=== PATIENT | female | born 1990 | race African-American/Black ===

== ENCOUNTER 2021-09-15 20:02 | Inpatient (IN) | payer MEDICAID, OTHER ==
[~2021-09-15] VITALS: Ht 175.3 cm; Wt 61.4 kg
[2021-09-16] MEDS ORDERED: SODIUM CHLORIDE 0.9% 1,000 ML IV ONE (02:00)
[2021-09-16 02:35] LABS: Basophils # (auto) 0.1 10 ^3/uL (0-0.2); Basophils % (auto) 0.6 % (0.0-2.0); Eosinophils # (auto) 0.1 10 ^3/uL (0-0.8); Eosinophils % (auto) 1.4 % (0.0-7.0); Hematocrit 36.5 % (36.0-46.0); Hemoglobin 12.3 g/dL (12.2-16.2); Lymphocytes # (auto) 3.5 10 ^3/uL (0.4-5.4); Lymphocytes % (auto) 40.8 % (10.0-50.0); Mean Corpuscular Hemoglobin 29.9 pg (28.0-32.0); Mean Corpuscular Hgb Conc. 33.7 g/dL (32.0-36.0); Mean Corpuscular Volume 88.5 fL (80.0-100.0); Monocytes # (auto) 0.5 10 ^3/uL (0-1.3); Monocytes % (auto) 6.2 % (0.0-12.0); Neutrophils # (auto) 4.4 10 ^3/uL (1.6-8.6); Red Blood Cells 4.13 10^6/uL (4.0-5.20); Red Cell Distribution Width 15.6 % (11.8-14.3); White Blood Cell 8.7 10^3/uL (4.4-10.8)
[2021-09-16 02:37] LABS: Albumin 3.6 g/dL (3.4-5.0); BUN/Creatinine Ratio 16.7; Calcium 8.7 mg/dL (8.5-10.1); Potassium 3.4 mmol/L (3.5-5.1)
[2021-09-16 02:39] LABS: Bilirubin, Total 0.6 mg/dL (0.2-1.0); Total Protein 7.3 g/dL (6.4-8.2)
[2021-09-16 02:51] LABS: INR 1.05 (0.9-1.15); Partial Thromboplastin Time 25.4 sec (23.6-33.0)
[2021-09-16] MEDS ORDERED: LACTATED RINGER'S 1,000 ML IV ONE (04:15)
[2021-09-16] MEDS ORDERED: NITROGLYCERIN 0.4 MG SL TAB SL PRN (05:15)
[2021-09-16] MEDS ORDERED: MORPHINE SULFATE INJECTION 2 MG/ML SYRG IV PRN (05:15)
[2021-09-16 06:59] LABS: Urine Bacteria NONE SEEN /hpf (None Seen); Urine Blood 1+ /uL (Negative); Urine Mucus FEW (None Seen); Urine Specific Gravity 1.015 (1.001-1.035); Urine WBC 2 /hpf (0 - 5)
[2021-09-16] MEDS ORDERED: ceFAZolin 1GM/50ML 100 ML IV ONE (08:16)
[2021-09-16] MEDS ORDERED: LIDOCAINE 2% (LOCAL ANESTH.) PF 5ml SDV ONE (08:21)
[2021-09-16] MEDS ORDERED: PROPOFOL 10 MG/ML 20 ML IV ONE (08:21)
[2021-09-16] MEDS ORDERED: KETAMINE HCL 10 ML ONE (08:21)
[2021-09-16] MEDS ORDERED: fentaNYL CITRATE 100 MCG/2 ML VL ONE (08:21)
[2021-09-16] MEDS ORDERED: HYDROmorphone HCL 2 MG/ML VL ONE ×2 (08:21→11:13)
[2021-09-16] MEDS ORDERED: DexAMETHasone SOD PHOS 10MG/1ML VIAL INJ ONE (08:21)
[2021-09-16] MEDS ORDERED: GLYCOPYRROLATE 0.2 MG/ML 1ML VIAL ONE (08:21)
[2021-09-16] MEDS ORDERED: ePHEDrine SULFATE 50 MG/ML AMP ONE (08:21)
[2021-09-16] MEDS ORDERED: ONDANSETRON HCL 4 MG/2 ML VIAL ONE (08:21)
[2021-09-16] MEDS ORDERED: KETOROLAC TROMETH 30 MG/ML 1ML VIAL ONE (08:21)
[2021-09-16] MEDS ORDERED: MIDAZOLAM HCL 2MG/2ML 2ml VIAL (1mg/ml) ONE (08:21)
[2021-09-16] MEDS ORDERED: SUGAMMADEX 200mg/2ml Vial (100MG/ML) IV ONE (09:56)
[2021-09-16] MEDS ORDERED: ONDANSETRON HCL 4 MG/2 ML VIAL IV PRN ×2 (10:15→11:00)
[2021-09-16] MEDS: LACTATED RINGER'S 1,000 ML IV SCH ×3 (10:15→23:35)
[2021-09-16] MEDS ORDERED: DOCU-94 PO (11:08)
[2021-09-16] MEDS ORDERED: IBUP800T27 PO (11:08)
[2021-09-16] MEDS ORDERED: HYDR-4902 PO (11:08)
[2021-09-16] MEDS: HYDROmorphone HCL 2 MG/ML VL IV PRN ×4 (11:16→20:57)
[2021-09-16] MEDS ORDERED: SUCCINYLCHOLINE CHLORIDE 20 MG/ML 10ML VIAL IV ONE (12:23)
[2021-09-16] MEDS: ceFAZolin 1GM/50ML 50 ML IV SCH ×2 (13:42→20:56)
[2021-09-16 14:05] VITALS: BP 135/104
[2021-09-16 20:15] LABS: Basophils # (auto) 0 10 ^3/uL (0-0.2); Eosinophils # (auto) 0 10 ^3/uL (0-0.8); Hematocrit 34.9 % (36.0-46.0); Hemoglobin 11.4 g/dL (12.2-16.2); Lymphocytes # (auto) 0.9 10 ^3/uL (0.4-5.4); Lymphocytes % (auto) 6.1 % (10.0-50.0); Mean Corpuscular Hgb Conc. 32.8 g/dL (32.0-36.0); Mean Corpuscular Volume 88.5 fL (80.0-100.0); Monocytes # (auto) 0.3 10 ^3/uL (0-1.3); Monocytes % (auto) 2.5 % (0.0-12.0); Neutrophils # (auto) 12.9 10 ^3/uL (1.6-8.6); Neutrophils % (auto) 91.4 % (37.0-80.0); Red Blood Cells 3.95 10^6/uL (4.0-5.20); Red Cell Distribution Width 15.2 % (11.8-14.3); White Blood Cell 14.1 10^3/uL (4.4-10.8)
[2021-09-17] MEDS: HYDROmorphone HCL 2 MG/ML VL IV PRN ×2 (02:27→08:50)
[2021-09-17] MEDS: LACTATED RINGER'S 1,000 ML IV SCH ×2 (04:00→16:50)
[2021-09-17] MEDS ORDERED: BISACODYL 10 MG RECT SUPP PR PRN (04:00)
[2021-09-17 05:00] VITALS: BP 108/50
[2021-09-17 06:15] LABS: Basophils # (auto) 0 10 ^3/uL (0-0.2); Basophils % (auto) 0.2 % (0.0-2.0); Eosinophils # (auto) 0 10 ^3/uL (0-0.8); Hematocrit 31.7 % (36.0-46.0); Hemoglobin 10.7 g/dL (12.2-16.2); Lymphocytes # (auto) 2.3 10 ^3/uL (0.4-5.4); Lymphocytes % (auto) 17.7 % (10.0-50.0); Mean Corpuscular Hemoglobin 29.8 pg (28.0-32.0); Mean Corpuscular Hgb Conc. 33.7 g/dL (32.0-36.0); Mean Corpuscular Volume 88.2 fL (80.0-100.0); Monocytes % (auto) 7.3 % (0.0-12.0); Neutrophils # (auto) 9.9 10 ^3/uL (1.6-8.6); Neutrophils % (auto) 74.8 % (37.0-80.0); Red Cell Distribution Width 14.9 % (11.8-14.3); White Blood Cell 13.2 10^3/uL (4.4-10.8)
[2021-09-17] MEDS: ceFAZolin 1GM/50ML 50 ML IV SCH ×3 (06:55→22:34)
[2021-09-17] MEDS: DOCUSATE SOD 100 MG CAP PO SCH ×2 (08:51→22:35)
[2021-09-17 09:00] VITALS: BP 115/66
[2021-09-17 12:35] VITALS: BP 117/62
[2021-09-17] MEDS: HYDROcodone-ACET 5/325MG TAB PO PRN ×2 (13:43→18:52)
[2021-09-17 16:33] VITALS: BP 113/70
[2021-09-17 22:00] VITALS: BP 128/79
[2021-09-18] MEDS: LACTATED RINGER'S 1,000 ML IV SCH (05:00)
[2021-09-18 05:45] VITALS: BP 107/68
[2021-09-18] MEDS: ceFAZolin 1GM/50ML 50 ML IV SCH (06:55)
[2021-09-18] MEDS: DOCUSATE SOD 100 MG CAP PO SCH (07:54)
[2021-09-18] MEDS: HYDROcodone-ACET 5/325MG TAB PO PRN (07:54)
[2021-09-18 08:38] VITALS: BP_SYST 134; BP_SYST 150; BP_DIAS 78
[2021-09-18 10:08] VITALS: BP 134/78
== END 2021-09-18 12:24 | disposition home or self-care (01) | DRG 547 ==
LOC: ER 20:04 → OVERFLOW 09-16 05:09 → WEST WING 09-16 08:19
PROVIDERS: ADMIT Obstetrics & Gynecology; ATTEND Obstetrics & Gynecology
PROC: 0UC50ZZ Extirpation of Matter from Right Fallopian Tube, Open Approach (ICD-10-PCS; 2021-09-16)
PROC: 0UB50ZZ Excision of Right Fallopian Tube, Open Approach (ICD-10-PCS; principal; 2021-09-16 09:15)
DX: O00.90 Unspecified ectopic pregnancy without intrauterine pregnancy (principal); K66.1 Hemoperitoneum; R71.0 Precipitous drop in hematocrit; O08.89 Other complications following an ectopic and molar pregnancy; Z20.822 Contact with and (suspected) exposure to COVID-19
CPT/HCPCS: 36415; 76801; 76817; 80053; 81001; 84702; 85025; 85610; 85730; 86850; 86870; 86900; 86901; 87426; 96360; 96361; G0378; J0330; J0690; J1100; J1885; J2001; J2250; J2405; J2704